=== PATIENT | female | born 1945 | race African-American/Black ===

== ENCOUNTER 2019-07-04 05:47 | Observation (INO) ==
[2019-07-04] MEDS ORDERED: NEPAFENAC 0.1% OPH SOLN 3 ML BOTTLE ONE (06:48)
[2019-07-04] MEDS ORDERED: MOXIFLOXACIN 0.5% OPH SOLN 3 ML BOTTLE ONE (06:48)
[2019-07-04] MEDS ORDERED: ONDANSETRON 4 MG/2 ML VIAL IV PRN (09:02)
[2019-07-04] MEDS ORDERED: ACETAMINOPHEN 325 MG TABLET PO PRN (09:02)
[2019-07-04 09:25] LABS: Basophils # 0.1 10*3/uL (0.0-0.2); Basophils % 0.5 % (0.0-0.8); Eosinophils # 0.1 10*3/uL (0.0-0.87); Eosinophils % 0.7 % (0.00-10.9); Hematocrit 38.9 VOL% (35.7-47.0); Hemoglobin 12.7 GM/DL (12.0-16.0); Immature Granulocytes % 0.5 %; Immature Granulocytes Absolute 0.05 #; Lymphocytes # 1.8 10*3/uL (1.4-4.0); Lymphocytes % 19.6 % (21.3-54.2); Mean Corpuscular HGB Conc 32.6 GM/DL (32-36); Mean Corpuscular Volume 87.8 FL (87-102); Mean Platelet Volume 10.3 FL (9.6-12.0); Monocytes % 5.4 % (1.7-12.7); Neutrophils % 73.3 % (38.7-73.9); Platelet Count 282 T/CUMM (130-400); Red Blood Count 4.43 MC/CUMM (3.8-5.5); Red Cell Distribution Width 14.4 % (9.3-17.3); White Blood Count 9.4 T/CUMM (4-12)
[2019-07-04] MEDS: LACTATED RINGERS 1,000 ML IV SCH (09:30)
[2019-07-04 09:44] LABS: Albumin 3.7 G/DL (3.4-5.0); Bilirubin,Total 0.5 MG/DL (0.2-1.0); Calcium 9.2 MG/DL (8.5-10.1); Total Protein 7.6 G/DL (6.4-8.3)
[2019-07-04] MEDS: SODIUM CHLORIDE 0.9% 1,000 ML IV SCH (09:55)
[2019-07-04] MEDS ORDERED: ENOXAPARIN 40 MG/0.4 ML SYRINGE SUBCUT SCH (11:30)
[2019-07-04] MEDS: ESCITALOPRAM 10 MG TABLET PO SCH (12:42)
[2019-07-04] MEDS: ASPIRIN EC 81 MG TABLET PO SCH (12:43)
[2019-07-04] MEDS: POTASSIUM CHLORIDE 20 MEQ TABLET PO SCH ×2 (12:43→20:28)
[2019-07-04] MEDS: ASCORBIC ACID 500 MG TABLET PO SCH ×2 (12:43→20:28)
[2019-07-04 14:06] LABS: Apearance,Urine CLEAR (Clear); Bilirubin,Urine Negative (Negative); Blood, Urine Negative (Negative); Glucose,Urine (UA) Negative (Negative); Ketones,Urine 5 mg/dL (Negative); Mucus,Urine Occasional /LPF (Occasional); Nitrite,Urine Negative (Negative); Protein,Urine Negative; RBC,Urine 1 /HPF (0-4); Urine Color Straw (Yellow); Urine Urobilinogen < 2.0 EU/DL (0.2-1.0); WBC,Urine <1 /HPF (0-6)
[2019-07-04] MEDS ORDERED: ATORVASTATIN 20 MG TABLET PO SCH (21:00)
[2019-07-04] MEDS ORDERED: HydrOXYzine PAMOATE 25 MG CAPSULE PO PRN (22:09)
[2019-07-05] MEDS: SODIUM CHLORIDE 0.9% 1,000 ML IV SCH (00:09)
[2019-07-05 05:20] LABS: Basophils % 0.5 % (0.0-0.8); Eosinophils # 0.1 10*3/uL (0.0-0.87); Eosinophils % 1.5 % (0.00-10.9); Hematocrit 34.4 VOL% (35.7-47.0); Hemoglobin 11.3 GM/DL (12.0-16.0); Immature Granulocytes % 0.2 %; Immature Granulocytes Absolute 0.02 #; Lymphocytes # 3.1 10*3/uL (1.4-4.0); Lymphocytes % 35.6 % (21.3-54.2); Mean Corpuscular HGB Conc 32.8 GM/DL (32-36); Mean Corpuscular Volume 87.5 FL (87-102); Mean Platelet Volume 10.3 FL (9.6-12.0); Monocytes % 10.2 % (1.7-12.7); Platelet Count 245 T/CUMM (130-400); Red Blood Count 3.93 MC/CUMM (3.8-5.5); Red Cell Distribution Width 14.2 % (9.3-17.3); White Blood Count 8.6 T/CUMM (4-12)
[2019-07-05 05:47] LABS: Osmolality,Calculated 281.1 MOS/KG (273-304); Risk Ratio 1.89; Thyroid Stimulating Hormone 2.63 uIU/ml (0.358-3.74)
[2019-07-05 08:07] VITALS: BP 143/63
[2019-07-05] MEDS ORDERED: PANTOPRAZOLE 40 MG TABLET PO SCH (09:00)
[2019-07-05] MEDS: LEVOTHYROXINE 50 MCG TABLET PO SCH ×2 (09:04→09:06)
[2019-07-05] MEDS: ASPIRIN EC 81 MG TABLET PO SCH (09:05)
[2019-07-05] MEDS: POTASSIUM CHLORIDE 20 MEQ TABLET PO SCH (09:07)
[2019-07-05] MEDS: ASCORBIC ACID 500 MG TABLET PO SCH (09:07)
[2019-07-05] MEDS: CYCLOPENTOLATE 1% OPH SOLN 2 ML BOTTLE LEFT EYE SCH ×2 (09:11→09:12)
[2019-07-05] MEDS: PHENYLEPHRINE 10% LEFT EYE SCH (09:12)
[2019-07-05] MEDS: NEPAFENAC 0.1% OPH SOLN 3 ML BOTTLE LEFT EYE SCH ×2 (09:13→09:14)
[2019-07-05] MEDS: TROPICAMIDE 1% LEFT EYE SCH (09:13)
[2019-07-05] MEDS: MOXIFLOXACIN 0.5% OPH SOLN 3 ML BOTTLE LEFT EYE SCH (09:14)
[2019-07-05] MEDS: LACTATED RINGERS 1,000 ML IV SCH (09:14)
[2019-07-05] MEDS ORDERED: DICLOFENAC 1% GEL 100 GM TUBE TOP SCH (09:41)
[2019-07-05] MEDS: ESCITALOPRAM 10 MG TABLET PO SCH (10:27)
== END 2019-07-05 10:53 | disposition home or self-care (01) ==
LOC: SUATTDRO → N.OR 05:47 → N.TELEN 05:47 → N.SDSINP 05:47 → N.TELEN 11:04
PROVIDERS: ADMIT Ophthalmology; ATTEND Ophthalmology